=== PATIENT | male | born 1980 | race African-American/Black ===

== ENCOUNTER 2016-12-22 04:48 | Emergency (ER) | payer OTHER, BC ==
[~2016-12-22] VITALS: Ht 172.7 cm; Wt 86.2 kg
[2016-12-22 04:53] VITALS: BP 146/84
[2016-12-22] MEDS ORDERED: DIAZEPAM 10 MG/2 ML DISP.SYRIN. IM ONE (05:15)
--- NOTE | 2016-12-22 05:27 | PHYS DOC ---
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 Patient states he was given Flexeril and took Motrin and awoke several hours ago with significant left-sided neck stiffness and inability to turn his neck to the left. He denies any numbness or tingling. He denies any problems with her shoulder. Patient is in no acute distress at this time. He denies any other injuries. States he was grappling and wrestling for several hours and had to be tased multiple times as part of his training. Review of Systems Review of Systems Constitutional: Denies fever or chills [] Eyes: Denies change in visual acuity, redness, or eye pain [] HENT: Denies nasal congestion or sore throat [] Respiratory: Denies cough or shortness of breath [] Cardiovascular: No additional information not addressed in HPI [] GI: Denies abdominal pain, nausea, vomiting, bloody stools or diarrhea [] : Denies dysuria or hematuria [] Musculoskeletal: Denies back pain or joint pain [] Integument: Denies rash or skin lesions [] Neurologic: Denies headache, focal weakness or sensory changes [] Endocrine: Denies polyuria or polydipsia [] Current Medications Current Medications Current Medications Medications (Trade) Dose Ordered Sig/Paulina Start Time Stop Time Status Last Admin Dose Admin Acetaminophen/ Hydrocodone Bitart (Lortab 5/325) 1 tab 1X ONCE 12/22/16 05:30 12/22/16 05:31 DC Diazepam (Valium) 5 mg 1X ONCE 12/22/16 05:15 12/22/16 05:16 DC Allergies Allergies Allergies Coded Allergies Type Severity Reaction Last Updated Verified No Known Drug Allergies 12/22/16 No Physical Exam Physical Exam Constitutional: Well developed, well nourished, no acute distress, non-toxic appearance. [] HENT: Normocephalic, atraumatic, bilateral external ears normal, oropharynx moist, no oral exudates, nose normal. [] Eyes: PERRLA, EOMI, conjunctiva normal, no discharge. [] Neck: Decreased ROM to left sided neck rotation secondary to pain, moderate left sided neck tenderness along the area of the trapezius, supple, no stridor. [] Cardiovascular:Heart rate regular rhythm, no murmur [] Lungs & Thorax: Bilateral breath sounds clear to auscultation [] Abdomen: Bowel sounds normal, soft, no tenderness, no masses, no pulsatile masses. [] Skin: Warm, dry, no erythema, no rash. [] Back: No tenderness, no CVA tenderness. [] Extremities: No tenderness, no cyanosis, no clubbing, ROM intact, no edema. [] Neurologic: Alert and oriented X 3, normal motor function, normal sensory function, no focal deficits noted. [] Psychologic: Affect normal, judgement normal, mood normal. [] EKG EKG [] Radiology/Procedures Radiology/Procedures [] Course & Med Decision Making Course & Med Decision Making Pertinent Labs and Imaging studies reviewed. (See chart for details) This 36-year-old male with left-sided neck stiffness and inability to turn his head fully to the left is likely displaying symptoms of left-sided trapezius strain and torticollis. 5 mg of IM Valium were administered. I'll also give the patient and Mobridge. I counseled him that he is to remain off duty and avoid stress activities for the next several days. I'll be prescribing him Valium and Mobridge as needed. On my reassessment, the patient feels much improved after Valium and is comfortable with being discharged. I'll be prescribe him a short course of Valium as well as Mobridge as needed for pain. I counseled him to continue to take anti-inflammatories for the next few days and to avoid stress activities today. He is exhibiting symptoms of torticollis. He needs to continue using heat therapy as needed. There is no indication to perform any imaging as his symptoms are muscular in etiology and he has no pain in the shoulder whatsoever. Dragon Disclaimer AppJet Disclaimer This electronic medical record was generated, in whole or in part, using a voice recognition dictation system. Departure Departure Impression: Primary Impression: Acute torticollis Additional Impression: Trapezius strain Disposition: 01 HOME, SELF-CARE Admitting Physician: Other Condition: STABLE Referrals: NO PCP (PCP) Patient Instructions: Torticollis, Acute Additional Instructions: Please follow-up with your primary care doctor in the next several days for your neck strain. Avoid doing any strenuous activities. Take your Valium as needed and use heat therapy to the affected area of the neck. Return to the ER if you develop any worsening of your symptoms. Scripts Hydrocodone/Apap 5-325 (Mobridge 5-325 Tablet)1 Each Tablet1 Tab PO PRN Q6HRS PRN PAIN #10 TAB Prov:NJ BARNES DO 12/22/16 Diazepam (Valium)5 Mg Tablet5 Mg PO BID #10 TAB Prov:N[place] BARNES DO 12/22/16 Problem Qualifiers [place] BARNES DO Dec 22, 2016 05:27
[2016-12-22] MEDS ORDERED: HYDROCODONE/APAP 5/325MG TABLET. PO ONE (05:30)
[2016-12-22] MEDS ORDERED: DIAZ5TAB PO (05:55)
[2016-12-22] MEDS ORDERED: HYDR-971 PO (05:56)
== END 2016-12-22 06:03 | disposition home or self-care (01) ==
LOC: ER 04:48
DX: S16.1XXA Strain of muscle, fascia and tendon at neck level, initial encounter (principal); M43.6 Torticollis; X58.XXXA Exposure to other specified factors, initial encounter; Y93.72 Activity, wrestling; Y92.89 Other specified places as the place of occurrence of the external cause; Y99.8 Other external cause status
CPT/HCPCS: 96372; 99283; J3360